=== PATIENT | female | born 1990 | race American Indian/Alaskan Native ===

== ENCOUNTER 2016-12-27 23:26 | Emergency (ER) | payer OTHER ==
--- NOTE | 2016-12-28 04:40 | Emergency Department Report ---
HPI - General Chief Complaint: Sore Throat Time Seen by Provider: 12/28/16 04:29 - HPI HPI: Patient reports sore throat, fever, cough and jaw pain. She said her throat is 6 out of 10 started yesterday. She says she has chills but denies taking her temperature. Denies any drooling or difficulty swallowing. Denies any shortness of breath or chest pain. No [id number] medication taken ED Past Medical Hx - Past Medical History Previous Medical History?: Yes Hx Psychiatric Treatment: Yes (anxiety and depression) - Surgical History Past Surgical History?: No - Family History Family history: hypertension - Social History Smoking Status: Never Smoker Substance Use Type: Alcohol - Medications Home Medications: Home Medications Medication Instructions Recorded Confirmed Last Taken Type Cyclobenzaprine [Flexeril 10mg] 10 mg PO TID PRN #30 tablet 05/22/14 Unknown Rx Ibuprofen [Motrin] 800 mg PO Q8H #30 tablet 05/22/14 Unknown Rx traMADol [Ultram 50 MG tab] 50 mg PO Q6HR PRN #30 tablet 05/22/14 Unknown Rx Ibuprofen [Motrin] 600 mg PO Q8H PRN #15 tablet 12/28/16 Unknown Rx Penicillin Vk [Veetids TAB] 500 mg PO Q8H #60 tablet 12/28/16 Unknown Rx ED Review of Systems ROS: Stated complaint: SORE THROAT/FATIGUE,SOB/JAW PAIN/HEADACHE Other details as noted in HPI Comment: All other systems reviewed and negative Constitutional: chills. denies: malaise ENT: throat pain. denies: ear pain, dental pain, congestion Respiratory: cough. denies: shortness of breath, SOB with exertion, SOB at rest , stridor, wheezing Cardiovascular: denies: chest pain, palpitations, edema, syncope Gastrointestinal: denies: abdominal pain, nausea, vomiting, diarrhea Musculoskeletal: denies: back pain, arthralgia Skin: denies: rash Neurological: denies: headache, weakness Physical Exam - Physical Exam Vital Signs: Vital Signs 12/27/16 23:42 Temperature 98.2 F Pulse Rate 89 Respiratory 18 Rate Blood Pressure 139/91 O2 Sat by Pulse 100 Oximetry General: This is a 26-year-old female well-nourished well-developed in no acute distress. Physical Exam: Head: Normocephalic atraumatic Mouth: Moist, Positive pharyngeal erythema with tonsillar enlargement, tonsillar stones and erythema.. Uvula is midline and oral airway is patent. No facial swelling. No peritonsillar abscesses. No drooling. Nose: Normal mucosa .Maxillary and frontal sinuses nontender to palpate Neck: Supple, no C-spine tenderness, no tracheal deviation. Nontender to palpate. Positive adenopathy Ears: Bilateral TMs pearly rivera . Bilateral EAC without any redness swelling or drainage. Bilateral otitis nontender to palpate Abdomen: Soft, nontender to palpate in all quadrants, normal bowel sounds in all quadrant and negative CVA tenderness bilaterally. Eyes: Bilateral pupils equal and reactive to light, bilateral EOM intact. Bilateral sclera and conjunctiva without injection. Normal accommodation. Lungs: Clear to auscultate bilaterally no rhonchi wheezes or rales. Normal work of breathing extremity; No CCE. +2 pulses. No neurovascular compromise Cardiovascular: S1-S2, regular rate rhythm. No murmurs. Skin: clean Dry and intact no rash no lesions Psych: Normal mood and behavior ED Course Vital Signs 12/27/16 23:42 Temperature 98.2 F Pulse Rate 89 Respiratory 18 Rate Blood Pressure 139/91 O2 Sat by Pulse 100 Oximetry - Reevaluation(s) Reevaluation #1: 12/28/16 05:01 Patient given Motrin and Deltasone in emergency room. ED Medical Decision Making - Lab Data Strep test was negative and cultures are pending. - Medical Decision Making ED course: Patient with diagnosis of tonsilith, tonsillitis and tonsillar enlargement with acute pharyngitis. I discussed diagnosis and treatment plan the patient and she voices understanding. The patient that she will need to follow-up with him as an for and to refer to discharge paperwork for phone number and address. I also discussed with her that she is any need to follow- up with primary care physician in 2-3 days and if she does not have one she'll need to follow-up follow[facility]up at [facility]. Patient discharged home with prescriptions prescription for penicillin VK, Motrin Critical care attestation.: If time is entered above; I have spent that time in minutes in the direct care of this critically ill patient, excluding procedure time. ED Disposition Clinical Impression: Tonsillith, Tonsillitis, Tonsillar enlargement Acute pharyngitis Qualifiers: Pharyngitis/tonsillitis etiology: unspecified etiology Qualified Code(s): J02.9 - Acute pharyngitis, unspecified Disposition: DISCHARGED TO HOME OR SELFCARE Is pt being admited?: No Does the pt Need Aspirin: No Condition: Stable Instructions: Pharyngitis (ED), Tonsillitis (ED) Additional Instructions: You have small stones to your tonsils which is referred to as tonsilith, he will also have tonsillitis and tonsillar enlargement. 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 Please take antibiotic as prescribed. Please follow up with primary care physician and if you do not have one U can follow-up at [facility] with outside Medical Center. Prescriptions: Ibuprofen [Motrin] 600 mg PO Q8H PRN #15 tablet PRN Reason: Pain Penicillin Vk [Veetids TAB] 500 mg PO Q8H #60 tablet Referrals: PRIMARY CAREMD [Primary Care Provider] - 2-3 Days [facility] [Outside] - 2-3 Days [facility] [Outside] - 2-3 Days SELENA PELAEZ MD [Staff Physician] - 2-3 Days Forms: Work/School Release Form(ED)
[2016-12-28] MEDS: MOTRIN PO ONE (04:59)
[2016-12-28] MEDS: DELTASONE PO ONE (04:59)
[2016-12-28 05:30] VITALS: BP 127/86
== END 2016-12-28 05:29 | disposition home or self-care (01) ==
LOC: ED 23:26
DX: J03.90 Acute tonsillitis, unspecified (principal); J02.9 Acute pharyngitis, unspecified; J35.1 Hypertrophy of tonsils; J35.8 Other chronic diseases of tonsils and adenoids; F41.9 Anxiety disorder, unspecified; F32.9 Major depressive disorder, single episode, unspecified
CPT/HCPCS: 87116; 87430; 99282; J7512